=== PATIENT | male | born 1985 | race Caucasian/White ===

== ENCOUNTER 2017-09-05 21:32 | Emergency (ER) | payer OTHER ==
[~2017-09-05] VITALS: Ht 167.6 cm; Wt 90.7 kg
[2017-09-05 22:43] VITALS: BP_SYST 153
[2017-09-05] MEDS ORDERED: ONDANSETRON 4 MG ODT TAB PO ONE (23:00)
[2017-09-05] MEDS ORDERED: KETOROLAC TROMETHAMINE 60 MG/2 ML VIAL IM ONE (23:15)
[2017-09-05 23:52] VITALS: BP_SYST 146
== END 2017-09-05 23:52 | disposition home or self-care (01) ==
LOC: SED 21:32
DX: R10.13 Epigastric pain (principal); R11.2 Nausea with vomiting, unspecified; R19.7 Diarrhea, unspecified; M54.5 Low back pain
CPT/HCPCS: 96372; 99283; J1885; Q0162